=== PATIENT | female | born 1970 ===

== ENCOUNTER 2017-10-10 14:12 | Emergency (ER) | payer OTHER ==
[~2017-10-10] VITALS: Ht 162.6 cm; Wt 72.6 kg
[~2017-10-10 14:12] MED LIST: BENADRYL25 MG PO; BUTALB-ACETAMI1 EACH; KEPPRA XR500 MG PO; LORATADINE10 M2; LYRICA50 MG; TEGRETOL200 MG PO; TOPAMAX50 MG; TOPAMAX50 MG PO; ZYRTEC10 M3 PO
[2017-10-10] MEDS ORDERED: TEGRETOL200 MG (14:21)
[2017-10-10] MEDS ORDERED: ORPHENADRINE C100 MG PO (17:14)
[2017-10-10] MEDS ORDERED: MEDROLPACK PO (17:14)
== END 2017-10-10 17:27 | disposition home or self-care (01) ==
LOC: ER 14:12
DX: S50.02XA Contusion of left elbow, initial encounter (principal); S10.83XA Contusion of other specified part of neck, initial encounter; M25.522 Pain in left elbow; W18.39XA Other fall on same level, initial encounter; Y93.89 Activity, other specified; Y92.89 Other specified places as the place of occurrence of the external cause; Y99.8 Other external cause status

== ENCOUNTER 2021-02-28 15:39 | Outpatient (CLI) | payer OTHER ==
[~2021-02-28 15:39] MED LIST changes: +MEDROLPACK PO; +ORPHENADRINE C100 MG PO; +TEGRETOL200 MG
== END 2021-02-28 15:55 | disposition home or self-care (01) ==
LOC: LAB 15:39
PROVIDERS: ATTEND Radiology Diagnostic Radiology
DX: R06.03 Acute respiratory distress (principal)

== ENCOUNTER 2021-03-04 08:09 | Outpatient (CLI) | payer OTHER | END 2021-03-04 14:51 | disposition home or self-care (01) | LOC: TOM 08:09 | PROVIDERS: ATTEND General Practice | DX: Q44.6 Cystic disease of liver (principal); R06.03 Acute respiratory distress; R09.02 Hypoxemia; J98.4 Other disorders of lung ==

== ENCOUNTER 2021-08-05 17:12 | Emergency (ER) | payer OTHER ==
[~2021-08-05] VITALS: Ht 162.6 cm; Wt 61.2 kg
[2021-08-05] MEDS ORDERED: SPIRIVA RESPIMAT4 G1 (17:18)
[2021-08-05] MEDS ORDERED: LIPITOR40 M1 (17:18)
[2021-08-05] MEDS ORDERED: KEPPRA1000 MG (17:18)
[2021-08-05] MEDS ORDERED: ADVAIR 100-501 EACH (17:18)
== END 2021-08-05 21:37 | disposition home or self-care (01) ==
LOC: ER 17:12
DX: R07.89 Other chest pain (principal); Z88.6 Allergy status to analgesic agent; Z88.0 Allergy status to penicillin; Z88.8 Allergy status to other drugs, medicaments and biological substances